=== PATIENT | female | born 1995 | race Hispanic/Latino ===

== ENCOUNTER 2020-10-11 06:48 | Observation (INO) | payer MEDICAID, OTHER ==
[~2020-10-11] VITALS: Ht 162.6 cm; Wt 122.5 kg
[2020-10-11 07:29] LABS: BILIRUBIN,URINE NEGATIVE (NEGATIVE); COLOR,URINE YELLOW (YELLOW); GLUCOSE, URINE (UA) 100 mg/dL (NEGATIVE); KETONES,URINE 5 mg/dL (NEGATIVE); LEUKOCYTE ESTERASE ,URINE TRACE (NEGATIVE); NITRATE,URINE NEGATIVE (NEGATIVE); OCCULT BLOOD,URINE LARGE (NEGATIVE); PH,URINE 6.5 (5.0-8.0); PROTEIN,URINE 30 mg/dL (NEGATIVE)
[2020-10-11 07:31] LABS: APPEARANCE,URINE SLIGHTLY CLOUDY (CLEAR)
[2020-10-11 07:35] LABS: BACTERIA,URINE Few /HPF (None Seen); WBC,URINE 0-1 /HPF (0-1)
[2020-10-11 07:38] LABS: RBC,URINE 51-100 /HPF (0-1)
[2020-10-11] MEDS ORDERED: LACTATED RINGERS 1000ML 1,000 ML IV SCH (08:45)
== END 2020-10-11 10:14 | disposition home or self-care (01) ==
LOC: EDH 06:48 → WSH 06:49
PROVIDERS: ADMIT Specialist; ATTEND Specialist
DX: O46.93 Antepartum hemorrhage, unspecified, third trimester (principal); N93.0 Postcoital and contact bleeding; Z3A.36 36 weeks gestation of pregnancy
CPT/HCPCS: 59025; 81001; 96360; 99284; G0378 ×3; J7120

== ENCOUNTER 2020-10-15 17:03 | Observation (INO) | payer OTHER ==
[~2020-10-15] VITALS: Ht 162.6 cm; Wt 121.1 kg
== END 2020-10-15 21:50 | disposition home or self-care (01) ==
LOC: EDH 17:03 → LDH 17:04
PROVIDERS: ADMIT Specialist; ATTEND Specialist
DX: O46.93 Antepartum hemorrhage, unspecified, third trimester (principal); O48.0 Post-term pregnancy; Z87.891 Personal history of nicotine dependence; Z3A.40 40 weeks gestation of pregnancy
CPT/HCPCS: 59025; 76805; 76819; 96360; 99284; G0378 ×5

== ENCOUNTER 2020-10-17 15:04 | Observation (INO) | payer OTHER ==
[2020-10-17 16:06] LABS: BASOPHILS % (AUTO) 0.5 % (0.0-5.0); EOSINOPHILS % (AUTO) 0.5 % (0.0-8.0); HEMATOCRIT 34.4 % (36-48); LYMPHOCYTES % (AUTO) 19.1 % (21.0-51.0); MEAN CORPUSCULAR HEMOGLOBIN 22.6 pg (27.0-33.0); MEAN CORPUSCULAR HGB CONC 30.2 g/dL (32.0-36.0); MEAN CORPUSCULAR VOLUME 74.6 fL (79-99); MONOCYTES % (AUTO) 7.1 % (3.0-13.0); NEUTROPHILS % (AUTO) 72.2 % (40.0-77.0); PLATELET COUNT (AUTO) 282 K/uL (130-400); RED BLOOD CELL COUNT(AUTO) 4.61 MIL/uL (4.00-5.50); RED CELL DISTRIBUTION WIDTH 15.2 % (11.0-15.5); WHITE BLOOD COUNT (AUTO) 11.1 K/uL (4.8-10.8)
[2020-10-17 16:14] LABS: APPEARANCE,URINE SL CLOUDY (CLEAR); BILIRUBIN,URINE NEGATIVE (NEGATIVE); COLOR,URINE YELLOW (YELLOW); GLUCOSE, URINE (UA) NEGATIVE (NEGATIVE); KETONES,URINE NEGATIVE (NEGATIVE); LEUKOCYTE ESTERASE ,URINE SMALL (NEGATIVE); NITRATE,URINE NEGATIVE (NEGATIVE); OCCULT BLOOD,URINE SMALL (NEGATIVE); PROTEIN,URINE TRACE mg/dL (NEGATIVE)
[2020-10-17 16:19] LABS: CREATININE 0.8 mg/dL (0.5-1.5); POTASSIUM 4.2 mmol/L (3.5-5.1)
[2020-10-17 16:21] LABS: INR 0.87 (0.85-1.15); PROTHROMBIN TIME 9.6 SEC (9.6-11.6)
[2020-10-17 16:22] LABS: ALBUMIN 2.4 g/dL (3.5-5.0); BILIRUBIN,TOTAL 0.4 mg/dL (0.2-1.0); TOTAL PROTEIN, SERUM 7.1 g/dL (6.0-8.3); URIC ACID 4.1 mg/dL (2.6-7.2)
[2020-10-17 16:23] LABS: PARTIAL THROMBOPLASTIN TIME 23.4 SEC (26.3-35.5)
[2020-10-17 16:31] LABS: BACTERIA,URINE Few /HPF (None Seen); MUCUS,URINE Rare LPF (None Seen); SQUAMOUS EPITHELIAL CELL,UR Moderate /HPF (0-2)
[2020-10-17] MEDS ORDERED: ACETAMINOPHEN 325 MG TAB PO PRN (17:30)
[2020-10-19 07:15] LABS: HEPATITIS Bs ANTIGEN SCREEN P Negative (Negative)
== END 2020-10-17 17:40 | disposition home or self-care (01) ==
LOC: LDH 15:17
PROVIDERS: ADMIT Specialist; ATTEND Specialist
DX: O26.613 Liver and biliary tract disorders in pregnancy, third trimester (principal); K83.1 Obstruction of bile duct; O13.3 Gestational [pregnancy-induced] hypertension without significant proteinuria, third trimester; Z3A.36 36 weeks gestation of pregnancy
CPT/HCPCS: 36415; 59025; 76819; 80053; 81001; 84550; 85025; 85384; 85610; 85730; 86592; 86850; 86900; 86901; 87340; G0378 ×2

== ENCOUNTER 2020-10-21 05:07 | Inpatient (IN) | payer OTHER ==
[~2020-10-21] VITALS: Ht 162.6 cm; Wt 122.9 kg
[2020-10-21] MEDS ORDERED: LACTATED RINGERS 1000ML 1,000 ML IV PRN (05:15)
[2020-10-21] MEDS ORDERED: OXYTOCIN-LR 20 UNITS/1000 ML 1,000 ML IV SCH ×2 (05:15→05:30)
[2020-10-21] MEDS ORDERED: MEPERIDINE-PF 50 MG/ML SYG IVP PRN (05:30)
[2020-10-21] MEDS ORDERED: PROMETHAZINE HCL 25 MG/ML 1ML AMPULE IM PRN ×2 (05:30→22:00)
[2020-10-21] MEDS ORDERED: AMPICILLIN 2GM+NS 100ML 100 ML IV SCH (06:30)
[2020-10-21 06:39] LABS: APPEARANCE,URINE CLEAR (CLEAR); BILIRUBIN,URINE NEGATIVE (NEGATIVE); COLOR,URINE YELLOW (YELLOW); GLUCOSE, URINE (UA) NEGATIVE (NEGATIVE); KETONES,URINE NEGATIVE (NEGATIVE); LEUKOCYTE ESTERASE ,URINE SMALL (NEGATIVE); NITRATE,URINE NEGATIVE (NEGATIVE); OCCULT BLOOD,URINE NEGATIVE (NEGATIVE); PROTEIN,URINE NEGATIVE (NEGATIVE); UROBILINOGEN,URINE 0.2 mg/dL (0.2-1.0)
[2020-10-21 06:45] LABS: HEMATOCRIT 33.1 % (36-48); MEAN CORPUSCULAR HEMOGLOBIN 22.9 pg (27.0-33.0); MEAN CORPUSCULAR HGB CONC 30.8 g/dL (32.0-36.0); MEAN CORPUSCULAR VOLUME 74.2 fL (79-99); NUCLEATED RED BLOOD CELLS 0.2 % (0.0-0.19); RED BLOOD CELL COUNT(AUTO) 4.46 MIL/uL (4.00-5.50); RED CELL DISTRIBUTION WIDTH 15.1 % (11.0-15.5); WHITE BLOOD COUNT (AUTO) 11.5 K/uL (4.8-10.8)
[2020-10-21 07:09] LABS: BACTERIA,URINE Few /HPF (None Seen); RBC,URINE 0-1 /HPF (0-1)
[2020-10-21] MEDS ORDERED: LACTATED RINGERS 1000ML 1,000 ML IV SCH ×2 (08:45→20:15)
[2020-10-21] MEDS ORDERED: CALCIUM GLUC 1GM/10ML VIAL IV PRN (08:45)
[2020-10-21] MEDS ORDERED: MAGNESIUM 4 GM IV PRN (08:45)
[2020-10-21] MEDS: MAGNESIUM SULFATE 40GM/1000ML 1,000 ML IV PRN ×2 (09:01→22:07)
[2020-10-21 10:22] LABS: INR 0.84 (0.85-1.15); PROTHROMBIN TIME 9.3 SEC (9.6-11.6)
[2020-10-21 10:24] LABS: PARTIAL THROMBOPLASTIN TIME 23.3 SEC (26.3-35.5)
[2020-10-21 10:36] LABS: ALBUMIN 2.4 g/dL (3.5-5.0); BILIRUBIN,DIRECT 0.2 mg/dL (0.0-0.3); BILIRUBIN,TOTAL 0.4 mg/dL (0.2-1.0); CREATININE 0.8 mg/dL (0.5-1.5); URIC ACID 3.9 mg/dL (2.6-7.2)
[2020-10-21] MEDS ORDERED: AMPICILLIN 2GM+NS 100ML 100 ML IV ONE (10:52)
[2020-10-21] MEDS: AMPICILLIN 1GM+NS 50ML 50 ML IV SCH ×2 (15:08→19:20)
[2020-10-21] MEDS ORDERED: ACETAMINOPHEN 500 MG TABLET PO SCH (17:15)
[2020-10-21] MEDS ORDERED: CEFAZOLIN SODIUM 1 GM VIAL ONE (19:58)
[2020-10-21] MEDS ORDERED: CEFAZOLIN SODIUM 1 GM VIAL IVP PRN (20:15)
[2020-10-21] MEDS ORDERED: MORPHINE PF 100MG/10ML AMP IV ONE (20:19)
[2020-10-21] MEDS ORDERED: EPINEPHRINE PF 1MG AMP ONE (20:19)
[2020-10-21] MEDS ORDERED: ONDANSETRON 4MG INJ ONE (20:33)
[2020-10-21] MEDS ORDERED: OXYTOCIN 10 UNIT/1ML 10ML VIAL ONE (20:53)
[2020-10-21] MEDS ORDERED: MIDAZOLAM HCL 1 MG/ML 2ML VIAL ONE (21:20)
[2020-10-21] MEDS ORDERED: OXYTOCIN-LR 20 UNITS/1000 ML 1,000 ML IV PRN (22:00)
[2020-10-21] MEDS ORDERED: MEPERIDINE-PF 75 MG/ML SYG IM PRN (22:00)
[2020-10-22] MEDS ORDERED: DiphenhydrAMINE HCL 50 MG/ML VIAL ONE (00:13)
[2020-10-22] MEDS ORDERED: ONDANSETRON 4MG INJ IVP PRN (00:15)
[2020-10-22] MEDS ORDERED: DiphenhydrAMINE HCL 50 MG/ML VIAL IV SCH (00:15)
[2020-10-22 07:15] LABS: HEPATITIS Bs ANTIGEN SCREEN P Negative (Negative)
[2020-10-22 10:18] LABS: BASOPHILS % (AUTO) 0.3 % (0.0-5.0); EOSINOPHILS % (AUTO) 0.2 % (0.0-8.0); HEMATOCRIT 30.1 % (36-48); LYMPHOCYTES % (AUTO) 11.3 % (21.0-51.0); MEAN CORPUSCULAR HEMOGLOBIN 22.9 pg (27.0-33.0); MEAN CORPUSCULAR HGB CONC 31.9 g/dL (32.0-36.0); MEAN CORPUSCULAR VOLUME 71.8 fL (79-99); MONOCYTES % (AUTO) 6.8 % (3.0-13.0); PLATELET COUNT (AUTO) 257 K/uL (130-400); RED BLOOD CELL COUNT(AUTO) 4.19 MIL/uL (4.00-5.50); RED CELL DISTRIBUTION WIDTH 15.1 % (11.0-15.5); WHITE BLOOD COUNT (AUTO) 15.2 K/uL (4.8-10.8)
[2020-10-22] MEDS ORDERED: ACETAMINOPHEN 500 MG TABLET PO PRN (12:30)
[2020-10-22] MEDS ORDERED: MEASLES/MUMPS/RUBELLA VACCINE, LIVE 0.5 ML/VIAL SQ SCH (12:30)
[2020-10-22] MEDS ORDERED: LANOLIN 30GM OINTMENT TP PRN (12:30)
[2020-10-22] MEDS ORDERED: HYDROCODONE/ACETAMINOPHEN 5/325 MG TAB PO PRN (12:30)
[2020-10-22 14:30] VITALS: BP 145/81
[2020-10-22 16:18] VITALS: BP 109/59
[2020-10-22] MEDS: SIMETHICONE 80 MG TAB.CHEW PO PRN ×2 (17:51→20:46)
[2020-10-22] MEDS: DIPH,PERTUSS(ACELL),TET VAC/PF 0.5 ML VIAL IM SCH (17:51)
[2020-10-22] MEDS: ACETAMINOPHEN WITH CODEINE 1 TAB TAB PO PRN (17:57)
[2020-10-22 19:21] VITALS: BP 120/75
[2020-10-22] MEDS: AMPICILLIN 1GM+NS 50ML 50 ML IV SCH (20:05)
[2020-10-22] MEDS ORDERED: DIPHENHYDRAMINE HCL 25 MG CAPSULE PO PRN (20:15)
[2020-10-22 23:31] VITALS: BP 116/83
[2020-10-23] MEDS: LACTATED RINGERS 1000ML 1,000 ML IV SCH ×2 (00:40→02:28)
[2020-10-23] MEDS: AMPICILLIN 1GM+NS 50ML 50 ML IV SCH ×3 (02:00→05:12)
[2020-10-23] MEDS: DIPH,PERTUSS(ACELL),TET VAC/PF 0.5 ML VIAL IM SCH (02:31)
[2020-10-23 03:46] VITALS: BP 140/72
[2020-10-23] MEDS ORDERED: BISACODYL 10 MG SUPP.RECT RC PRN (08:30)
[2020-10-23] MEDS: IBUPROFEN 600 MG TABLET PO PRN (09:03)
[2020-10-23] MEDS: SIMETHICONE 80 MG TAB.CHEW PO PRN ×3 (09:03→21:16)
[2020-10-23] MEDS: DOCUSATE SODIUM 100 MG CAP PO SCH ×2 (09:03→21:16)
[2020-10-23 09:23] VITALS: BP 144/79
[2020-10-23 11:36] VITALS: BP 148/88
[2020-10-23] MEDS ORDERED: PREN-154 PO (14:51)
[2020-10-23] MEDS ORDERED: URSO500T10 PO (14:51)
[2020-10-23 16:50] VITALS: BP 125/75
[2020-10-23] MEDS: ACETAMINOPHEN WITH CODEINE 1 TAB TAB PO PRN (17:05)
[2020-10-23 19:51] VITALS: BP 143/83
[2020-10-24 00:33] VITALS: BP 131/78
[2020-10-24 03:34] VITALS: BP 144/83
[2020-10-24] MEDS: IBUPROFEN 600 MG TABLET PO PRN ×2 (04:12→09:38)
[2020-10-24 07:30] VITALS: BP 136/88
[2020-10-24] MEDS: DOCUSATE SODIUM 100 MG CAP PO SCH (09:37)
[2020-10-24] MEDS: SIMETHICONE 80 MG TAB.CHEW PO PRN (09:37)
[2020-10-24 11:29] VITALS: BP 129/84
== END 2020-10-24 16:30 | disposition home or self-care (01) | DRG 786 ==
LOC: LDH 05:07 → OBSVTOIN 05:07 → WSH 10-22 14:20
PROVIDERS: ADMIT Specialist; ATTEND Specialist
PROC: 10D00Z1 Extraction of Products of Conception, Low, Open Approach (ICD-10-PCS; principal; 2020-10-21 19:45)
PROC: 3E0234Z Introduction of Serum, Toxoid and Vaccine into Muscle, Percutaneous Approach (ICD-10-PCS; 2020-10-22)
DX: O14.14 Severe pre-eclampsia complicating childbirth (principal); K83.1 Obstruction of bile duct; Z3A.37 37 weeks gestation of pregnancy; O26.62 Liver and biliary tract disorders in childbirth; Z37.0 Single live birth; Z23 Encounter for immunization; O62.2 Other uterine inertia
CPT/HCPCS: 36415; 59510; 80076; 81001; 82565; 83735; 84520; 84550; 85025; 85027; 85370; 85378; 85384; 85610; 85730; 86592; 86850; 86900; 86901; 87340; 90715; A4314; A4344; G0378; J0171; J0290; J0690; J1200; J2175; J2250; J2274; J2405; J2550; J2590; J3475; J7120